=== PATIENT | female | born 1955 | race Caucasian/White ===

== ENCOUNTER → 2023-09-10 07:55 | Outpatient (REF) | payer BC, SELFPAY | LOC: WOUND 07:55 | PROVIDERS: ATTENDING PHYSICIAN Surgery | DX: S71.001A Unspecified open wound, right hip, initial encounter (principal); T81.41XA Infection following a procedure, superficial incisional surgical site, initial encounter; E66.01 Morbid (severe) obesity due to excess calories; B95.8 Unspecified staphylococcus as the cause of diseases classified elsewhere; Z96.641 Presence of right artificial hip joint; X58.XXXA Exposure to other specified factors, initial encounter | CPT/HCPCS: 73502; 99204 ==

== ENCOUNTER → 2023-09-10 09:05 | Outpatient (REF) | payer BC, SELFPAY | LOC: RAD 09:05 | PROVIDERS: ATTENDING PHYSICIAN Surgery | DX: S71.001A Unspecified open wound, right hip, initial encounter (principal); Z96.641 Presence of right artificial hip joint | CPT/HCPCS: 73502 ==

== ENCOUNTER → 2023-09-17 08:53 | Outpatient (REF) | payer BC, SELFPAY | LOC: WOUND 08:53 | PROVIDERS: ATTENDING PHYSICIAN Surgery | DX: S71.001A Unspecified open wound, right hip, initial encounter (principal); T81.41XA Infection following a procedure, superficial incisional surgical site, initial encounter; E66.01 Morbid (severe) obesity due to excess calories; B95.8 Unspecified staphylococcus as the cause of diseases classified elsewhere; Z96.641 Presence of right artificial hip joint; Y83.8 Other surgical procedures as the cause of abnormal reaction of the patient, or of later complication, without mention of misadventure at the time of the procedure; X58.XXXA Exposure to other specified factors, initial encounter | CPT/HCPCS: 99213 ==

== ENCOUNTER → 2023-10-01 09:11 | Outpatient (REF) | payer BC, SELFPAY | LOC: WOUND 09:11 | PROVIDERS: ATTENDING PHYSICIAN Surgery | DX: S71.001A Unspecified open wound, right hip, initial encounter (principal); T81.41XA Infection following a procedure, superficial incisional surgical site, initial encounter; X58.XXXA Exposure to other specified factors, initial encounter | CPT/HCPCS: 17250; 99213 ==

== ENCOUNTER → 2023-10-08 09:12 | Outpatient (REF) | payer BC, SELFPAY | LOC: WOUND 09:12 | PROVIDERS: ATTENDING PHYSICIAN Surgery | DX: S71.001A Unspecified open wound, right hip, initial encounter (principal); T81.41XA Infection following a procedure, superficial incisional surgical site, initial encounter; Y83.8 Other surgical procedures as the cause of abnormal reaction of the patient, or of later complication, without mention of misadventure at the time of the procedure | CPT/HCPCS: 99213 ==

== ENCOUNTER → 2023-10-15 09:01 | Outpatient (REF) | payer BC, SELFPAY | LOC: WOUND 09:01 | PROVIDERS: ATTENDING PHYSICIAN Surgery | DX: S71.001A Unspecified open wound, right hip, initial encounter (principal); T81.41XA Infection following a procedure, superficial incisional surgical site, initial encounter; B95.8 Unspecified staphylococcus as the cause of diseases classified elsewhere; E66.01 Morbid (severe) obesity due to excess calories; Z96.641 Presence of right artificial hip joint; Y83.8 Other surgical procedures as the cause of abnormal reaction of the patient, or of later complication, without mention of misadventure at the time of the procedure | CPT/HCPCS: 99213 ==

== ENCOUNTER → 2023-10-21 07:25 | Outpatient (REF) | payer BC, SELFPAY | LOC: MRI 07:25 | PROVIDERS: ATTENDING PHYSICIAN Surgery | DX: S71.001A Unspecified open wound, right hip, initial encounter (principal) | CPT/HCPCS: 73721 ==

== ENCOUNTER → 2023-10-26 09:01 | Outpatient (REF) | payer BC, SELFPAY | LOC: WOUND 09:01 | PROVIDERS: ATTENDING PHYSICIAN Surgery | DX: S71.001A Unspecified open wound, right hip, initial encounter (principal); T81.41XA Infection following a procedure, superficial incisional surgical site, initial encounter; E66.01 Morbid (severe) obesity due to excess calories; B95.8 Unspecified staphylococcus as the cause of diseases classified elsewhere; Y83.8 Other surgical procedures as the cause of abnormal reaction of the patient, or of later complication, without mention of misadventure at the time of the procedure | CPT/HCPCS: 99212 ==

== ENCOUNTER → 2024-02-01 10:13 | Outpatient (REF) | payer BC, SELFPAY | LOC: WOUND 10:13 | PROVIDERS: ATTENDING PHYSICIAN Surgery | DX: S71.001A Unspecified open wound, right hip, initial encounter (principal); T81.41XA Infection following a procedure, superficial incisional surgical site, initial encounter; Z96.641 Presence of right artificial hip joint; E66.01 Morbid (severe) obesity due to excess calories; B95.8 Unspecified staphylococcus as the cause of diseases classified elsewhere; X58.XXXA Exposure to other specified factors, initial encounter; Y83.8 Other surgical procedures as the cause of abnormal reaction of the patient, or of later complication, without mention of misadventure at the time of the procedure | CPT/HCPCS: 99213 ==